=== PATIENT | female | born 1975 | race Caucasian/White ===

== ENCOUNTER 2020-01-28 23:57 | Emergency (ER) | payer OTHER ==
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
== END 2020-01-29 01:08 | disposition home or self-care (01) ==
LOC: JP.ED 23:57
DX: L03.012 Cellulitis of left finger (principal); F90.9 Attention-deficit hyperactivity disorder, unspecified type; Z79.899 Other long term (current) drug therapy
CPT/HCPCS: 10060; 87070; 87077; 87186; 87205; 99283; 99283-25